=== PATIENT | male | born 1955 | race Caucasian/White ===

== ENCOUNTER 2018-01-24 07:37 | Inpatient (IN) | payer OTHER ==
[~2018-01-24] VITALS: Ht 172.7 cm; Wt 74.8 kg
[~2018-01-24 07:37] MED LIST: CARV12.52 PO; CHLO25TA2 PO; DILT240C2 PO; DOXY100C41 PO; POTA10CA43 PO
[2018-01-24] MEDS ORDERED: ONDANSETRON HCL/PF 4 MG/2 ML VIAL ONE (07:43)
[2018-01-24] MEDS ORDERED: PANTOPRAZOLE 40 MG VIAL ONE ×2 (07:43→11:09)
[2018-01-24] MEDS ORDERED: MORPHINE SULFATE INJ 4 MG/ML DISP.SYRIN ONE ×2 (07:43→08:26)
--- NOTE | 2018-01-24 07:45 | NUR ---
BIB RA C/O EPIGASTRIC PAIN, NON RADIATING SINCE THIS MORNING, 08/26. NITRO X 3 SPRAYS AND ASA 325 GIVEN BY EMT WITH NO RELIEF. PATIENT IS A/OX 4. BREATHING EVEN AND UNLABORED. NO SOB. VITALS STABLE, NAD. SAFETY AND COMFORT MEASURES IN PLACE. AWAITING MD ORDERS.
--- NOTE | 2018-01-24 07:50 | NUR ---
LINE STARTED ON L AC G 20, BLOOD DRAWN FROM LINE AND SENT TO LAB
[2018-01-24] MEDS ORDERED: IV NS 0.9% 1,000 ML BAG IV ONE (08:00)
[2018-01-24] MEDS ORDERED: ONDANSETRON HCL/PF 4 MG/2 ML VIAL IV ONE (08:00)
[2018-01-24] MEDS ORDERED: PANTOPRAZOLE 40 MG VIAL IV ONE ×2 (08:00→11:30)
[2018-01-24] MEDS ORDERED: MORPHINE SULFATE INJ 2 MG/ML DISP.SYRIN IV ONE ×2 (08:00→08:30)
[2018-01-24 08:04] LABS: BASOPHILS % (AUTO) 0.5 % (0.0-2.0); EOSINOPHILS # (AUTO) 0.2 /CMM (0.0-0.7); EOSINOPHILS % (AUTO) 2.2 % (0.0-6.0); HEMATOCRIT 40 % (39-51); HEMOGLOBIN 13.4 g/dL (13.5-17.5); LYMPHOCYTES # (AUTO) 1.3 /CMM (0.8-4.8); LYMPHOCYTES % (AUTO) 16.8 % (20.0-44.0); MEAN CORPUSCULAR HEMOGLOBIN 29 PG (26.0-33.0); MEAN CORPUSCULAR HGB CONC 34 g/dl (31.0-36.0); MEAN CORPUSCULAR VOLUME 86 fL (80-96); MONOCYTES # (AUTO) 0.6 /CMM (0.1-1.30); MONOCYTES % (AUTO) 7.1 % (2.0-12.0); NEUTROPHILS # (AUTO) 5.8 /CMM (1.8-8.9); NEUTROPHILS % (AUTO) 73.4 % (43.0-81.0); PLATELET COUNT (AUTO) 295 /CMM (150-450); RDW COEFFICIENT OF VARIATION 14.3 (11.5-15.0); RED BLOOD CELL COUNT(AUTO) 4.62 MIL/uL (4.5-6.0)
[2018-01-24 08:18] LABS: CALCIUM, SERUM 9.5 mg/dL (8.5-10.1); CARBON DIOXIDE 29 mmol/L (21-32); CHLORIDE 101 mmol/L (98-107); CREATININE 1.1 mg/dL (0.6-1.3); GLUCOSE 135 mg/dL (74-106); POTASSIUM 3.6 mmol/L (3.5-5.1); SODIUM SERUM 138 mmol/L (136-145); UREA NITROGEN, BLOOD 21 mg/dL (7-18)
[2018-01-24 08:19] LABS: INR 0.98 (0.87-1.13)
[2018-01-24 08:26] LABS: TROPONIN I < 0.017 ng/mL (0.00-0.056)
[2018-01-24 08:35] LABS: ALBUMIN 3.5 g/dL (3.4-5.0); BILIRUBIN,DIRECT 0.1 mg/dL (0.0-0.2); BILIRUBIN,TOTAL 0.5 mg/dL (0.2-1.0); TOTAL PROTEIN, SERUM 7.9 g/dL (6.4-8.2)
[2018-01-24] MEDS ORDERED: IV NS 0.9% 250 ML IV ONE (09:29)
[2018-01-24] MEDS ORDERED: IOHEXOL-300 100 ML VIAL IV ONE (09:29)
--- NOTE | 2018-01-24 09:40 | NUR ---
PATIENT TAKEN TO CT VIA STRETCHER.
--- NOTE | 2018-01-24 09:55 | NUR ---
PATIENT RETURNED FROM CT IN STABLE CONDITION.
--- NOTE | 2018-01-24 11:42 | NUR ---
REPORT GIVEN TO JUVENTINO LOWERY FOR FELICIANO UPON ADMISSION.
[2018-01-24 12:00] VITALS: BP 181/82
--- NOTE | 2018-01-24 12:00 | NUR ---
MS RN OPENING NOTES PATIENT ARRIVED TO THE UNIT. IN NO APPARENT DISTRESS. BEDSIDE RAILS ARE UPX2. BED IS LOCKED AND LOWERED. CALL LIGHT IS WITHIN REACH. IV LINE IS PATENT AND INTACT. WILL CONTINUE TO MONITOR.
--- NOTE | 2018-01-24 12:10 | NUR ---
PATIENT TRANSPORTED TO [facility] VIA ACLS PROTOCOL. RN, JUVENTINO TO PROVIDE FELICIANO.
[2018-01-24] MEDS ORDERED: hydrALAZINE HCL IV 20 MG VIAL IV PRN (13:00)
[2018-01-24] MEDS ORDERED: MORPHINE SULFATE INJ 4 MG/ML DISP.SYRIN IV PRN (14:30)
[2018-01-24 16:00] VITALS: BP 166/93
[2018-01-24] MEDS ORDERED: ZOLPIDEM TARTRATE 5 MG TABLET PO PRN (16:30)
[2018-01-24] MEDS ORDERED: ONDANSETRON HCL/PF 4 MG/2 ML VIAL IVP PRN (16:30)
[2018-01-24] MEDS ORDERED: ACETAMINOPHEN 325 MG TABLET PO PRN (16:30)
[2018-01-24] MEDS ORDERED: Z GUARD REMEDY 2 OZ OINT TP PRN (16:30)
[2018-01-24] MEDS ORDERED: HYDROCODONE/APAP 5/325MG 1 EACH TABLET PO PRN (16:30)
[2018-01-24] MEDS: SUCRALFATE 1 G TABLET PO SCH ×2 (17:12→20:51)
--- NOTE | 2018-01-24 18:51 | NUR ---
MS RN CLOSING NOTES PATIENT IS IN RADIOLOGY FOR HIDASCAN. ALL NEEDS WERE MET. WILL ENDORSE CARE TO HEALTH INSPECTOR NURSE FOR FELICIANO.
[2018-01-24 20:00] VITALS: BP 161/92
--- NOTE | 2018-01-24 20:00 | NUR ---
TELE/RN OPENING NOTES PATIENT ARRIVED FROM HIDA SCAN ON A W/C ACCOMPANIED BY RADIOLOGIST, CAN AMBULATE BACK TO [facility], REPORTED WILL BE PICKED UP AT 0000 FOR ANOTHER PROCEDURE FOR HIDA SCAN PER RADIOLOGIST, PATIETN ALERT, ORIENTED, INFORMED NPO TILL MIDNIGHT. MEDICATION PO NOT GIVEN
--- NOTE | 2018-01-24 23:40 | NUR ---
NM:HIDA SCAN WAS COMPLETED. TECH:RB.
[2018-01-25] VITALS: BP 103/61
--- NOTE | 2018-01-25 00:05 | NUR ---
TELE/RN NOTES PATIENT ARRIVE FROM ANOTHER HIDA SCAN PROCEDURE. ALERT, REPORTED NEED SOMETHING TO EAT, FOOD PROVIDED/SNACKS.
[2018-01-25 01:44] VITALS: BP 103/61
[2018-01-25 04:00] VITALS: BP 109/53
--- NOTE | 2018-01-25 06:37 | NUR ---
TELE/RN CLOSING NOTES PATIENT IN BED, ABLE TO SLEEP DURING THE NIGHT, COOPERATIVE TO CARE, VERBALLIZE :WANT TO GO HOME" HIDA SCAN DONE AND WILL FOLLOW UP RESULT. CALL LIGHTS WITHIN REACH, BED IN LOCK POSITION. WILL CONTINUE TO MONITOR.
[2018-01-25 06:49] LABS: BASOPHILS % (AUTO) 0.3 % (0.0-2.0); EOSINOPHILS # (AUTO) 0.1 /CMM (0.0-0.7); EOSINOPHILS % (AUTO) 0.8 % (0.0-6.0); HEMATOCRIT 39 % (39-51); HEMOGLOBIN 13.3 g/dL (13.5-17.5); LYMPHOCYTES # (AUTO) 1.5 /CMM (0.8-4.8); LYMPHOCYTES % (AUTO) 13.3 % (20.0-44.0); MEAN CORPUSCULAR HEMOGLOBIN 29 PG (26.0-33.0); MEAN CORPUSCULAR HGB CONC 34 g/dl (31.0-36.0); MEAN CORPUSCULAR VOLUME 85 fL (80-96); MONOCYTES # (AUTO) 0.8 /CMM (0.1-1.30); MONOCYTES % (AUTO) 7.1 % (2.0-12.0); NEUTROPHILS % (AUTO) 78.5 % (43.0-81.0); PLATELET COUNT (AUTO) 301 /CMM (150-450); RDW COEFFICIENT OF VARIATION 14.4 (11.5-15.0); RED BLOOD CELL COUNT(AUTO) 4.55 MIL/uL (4.5-6.0); WHITE BLOOD COUNT (AUTO) 11.5 K/uL (4.3-11.0)
[2018-01-25 07:06] LABS: CREATININE 1.1 mg/dL (0.6-1.3); MAGNESIUM 1.9 mg/dL (1.8-2.4); PHOSPHORUS 3.3 mg/dL (2.5-4.9); POTASSIUM 3.5 mmol/L (3.5-5.1)
[2018-01-25] MEDS: SUCRALFATE 1 G TABLET PO SCH ×2 (07:30→11:24)
--- NOTE | 2018-01-25 07:30 | NUR ---
CANVAS MARKER OPENING NOTE PATIENT IS ALERT AND ORIENTED x4. NO PAIN AT THIS TIME. NO SOB OR DISTRESS NOTED. CALL LIGHT WITHIN REACH. SAFETY MEASURES IMPLEMENTED. ABLE TO COMMUNICATE NEEDS. IV INTACT AND PATENT ON LEFT AC NO FLUIDS RUNNING AT THIS TIME. ON ROOM AIR TOLERATING WELL AT 95%. LABS PENDING THIS MORNING. WILL CONTINUE TO MONITOR
[2018-01-25 08:00] VITALS: BP 126/70
[2018-01-25 08:13] VITALS: BP 126/70
--- NOTE | 2018-01-25 08:15 | NUR ---
STOCK CHECKER NOTE PATIENT REFUSED MEDICATIONS THIS MORNING. EXPLAINED RISKS AND BENEFITS, STILL REFUSED. PATIENT STATED " I DONT NEED TO TAKE THEM IF I WILL BE GOING HOME". WILL NOTIFY
[2018-01-25] MEDS ORDERED: Medication Not On Formulary EA (Chlorthalidone 25 MG) PO SCH (09:00)
[2018-01-25] MEDS ORDERED: POTASSIUM CHLORIDE 10 MEQ TABLET.SA PO SCH (09:00)
[2018-01-25] MEDS ORDERED: VALSARTAN 80 MG TABLET PO SCH (09:00)
--- NOTE | 2018-01-25 11:30 | NUR ---
GO GO DANCER NOTE PATIENT REFUSED 12PM MEDICATION. EXPLAINED RISKS AND BENEFITS x3.
[2018-01-25] MEDS ORDERED: CIPR-262 PO (12:04)
[2018-01-25] MEDS ORDERED: METR500T PO (12:04)
--- NOTE | 2018-01-25 13:30 | NUR ---
PROFESSOR OF MANAGEMENT NOTE PATIENT IS ALERT AND ORIENTED x4. NO PAIN AT THIS TIME. NO SOB OR DISTRESS NOTED. CALL LIGHT WITHIN REACH AT ALL TIMES. SAFETY MEASURES IMPLEMENTED. ABLE TO COMMUNICATE NEEDS. IV REMOVED, SKIN INTACT. ALL NURSING CARE NEEDS ATTENDED TO NEEDED. REFUSED MEDICATION THIS MORNING AND AFTERNOON EXPLAINED RISKS AND BENEFITS. PRESCRIPTION GIVEN TO PATIENT UPON DISCHARGE. ALL DISCHARGE INSTRUCTIONS GIVEN TO PATIENT AND AT BEDSIDE, BOTH ABLE TO REPEAT BACK INSTRUCTIONS. LEFT VIA PRIVATE CAR WITH . FOLLOW UP APPT WITH PRIMARY MD THIS WEEK.
== END 2018-01-25 13:30 | disposition home or self-care (01) | DRG 446 ==
LOC: ER 07:39 → TELE 11:37
PROVIDERS: ADMIT Nurse Practitioner Acute Care; ATTEND Nurse Practitioner Acute Care
DX: K80.01 Calculus of gallbladder with acute cholecystitis with obstruction (principal); I10 Essential (primary) hypertension; K25.9 Gastric ulcer, unspecified as acute or chronic, without hemorrhage or perforation
CPT/HCPCS: 36415; 71045-TC; 78226; 80048-TC; 80061-TC; 80076-TC; 83690-TC; 83735-TC; 84100-TC; 84484-TC; 85025-TC; 85730-TC; A4606; A9537; C9113; J0360; J2270; J2405; J7030; J7050; Q9967; Z7610